=== PATIENT | male | born 1945 | race Caucasian/White ===

== ENCOUNTER → 2022-08-29 | Outpatient (CLI) | payer MEDICARE, MEDICAID, SELFPAY ==
--- NOTE | 2022-08-29 08:36 | CPS ---
A complete pulmonary function test was ordered but patient was unable to be off of oxygen for longer than just a couple minutes and refused plethysmography testing because of this as well as claustrophobia. I was able to get patient to perform pre and post bronchodilator spirometry in which he gave good effort.
--- NOTE | 2022-08-30 07:17 | PFT ---
INTRODUCTION: The patient is a 76-year-old male that presented for pulmonary function studies secondary to a diagnosis of COPD. Respiratory therapy reported that the patient was unable to perform body plethysmography. Bronchodilators were used during testing. INTERPRETATION: Forced expiration spirometry demonstrates the presence of a very severe large airways obstructive ventilatory defect. There was a significant response to aerosolized bronchodilators noted, based upon change noted in FVC. Diffusion capacity by single breath CO was reduced to 29% of predicted. IMPRESSION: Partially reversible very severe large airways obstructive ventilatory impairment with symmetric reduction in diffusing capacity.
== END | disposition home or self-care (01) ==
PROVIDERS: PCP Internal Medicine Infectious Disease; Referring Provider Internal Medicine; Visit Provider Internal Medicine
DX: J44.9 Chronic obstructive pulmonary disease, unspecified (principal)
CPT/HCPCS: 94060